=== PATIENT | female | born 1985 | race American Indian/Alaskan Native ===

== ENCOUNTER 2019-06-02 04:04 | Emergency (ER) | payer OTHER ==
[2019-06-02] MEDS ORDERED: ONDANSETRON 4 MG/2 ML INJ ONE (04:42)
[2019-06-02] MEDS ORDERED: ONDANSETRON 4 MG/2 ML INJ IV ONE ×2 (04:57→05:34)
[2019-06-02] MEDS ORDERED: SODIUM CHLORIDE 0.9% 1000 ML 1,000 ML with CAFFEINE/SODIUM BENZOATE 500 MG IV ONE (06:26)
[2019-06-02] MEDS ORDERED: SODIUM CHLORIDE 0.9% 500 ML 500 ML IV ONE (06:26)
[2019-06-02] MEDS ORDERED: diphenhydrAMINE 50 MG/ML VIAL IV ONE (06:26)
[2019-06-02] MEDS ORDERED: METOCLOPRAMIDE 10 MG/2 ML INJ IV ONE (06:26)
--- NOTE | 2019-06-02 06:28 | Emergency Department Report ---
ED General Adult HPI - General Chief complaint: Seizure Stated complaint: SEIZURES Time Seen by Provider: 06/02/19 06:04 Source: patient, EMS ( EMS documentation not available at time of chart dictation ), RN notes reviewed Mode of arrival: Stretcher Limitations: No Limitations - History of Present Illness Initial comments: The patient is a 33-year-old female. She is not known to myself previously. She has a history of seizures, takes oxcarbazepine, 450 mg twice daily, and has been compliant with her medications. She was had an outpatient eye doctor appointment this past Wednesday, for routine eye care, and was found to have incidental asymptomatic "elevated pressure in my eyes." She went to [facility] for evaluation, and reports having had an MRI, and CT scan, the results of which she does not know, and the spinal tap performed on Wednesday. She reports that she was discharged. She presents today with a complaint of headache, frontal and bitemporal, not sudden or thunderclap in nature, not maximal in intensity, worse with sitting up, better with sitting down, with some nausea and vomiting. No fever, no chills, she did take her seizure medication, but has been having issues with throwing up. In the emergency room, she is given fluids, Reglan, caffeine, Benadryl, all of which improved her symptoms. She states her headache is mostly resolved at this time. There is no neck pain or neck stiffness. No fevers or chills. No u rinary symptoms. No cough. No abdominal pain at the moment. She reports that she feels "a whole lot better." Her last seizure was 6 months ago -: Gradual, Sudden Location: head Quality: other Consistency: other Improves with: other Worsens with: other Associated Symptoms: other - Related Data Home Medications Medication Instructions Recorded Confirmed Last Taken OXcarbazepine [Trileptal] 450 mg PO BID 06/02/19 06/02/19 Unknown Previous Rx's Medication Instructions Recorded Last Taken Type Metoclopramide [Reglan] 10 mg PO QID PRN #30 tab 06/02/19 Unknown Rx Allergies Allergy/AdvReac Type Severity Reaction Status Date / Time No Known Allergies Allergy Verified 06/02/19 04:55 ED Review of Systems ROS: Stated complaint: SEIZURES Other details as noted in HPI Constitutional: malaise. denies: fever Eyes: denies: eye pain, eye discharge ENT: denies: congestion Cardiovascular: denies: syncope Gastrointestinal: nausea, vomiting. denies: abdominal pain Genitourinary: denies: dysuria Musculoskeletal: as per HPI Skin: as per HPI Neurological: headache Psychiatric: as per HPI Hematological/Lymphatic: as per HPI ED Past Medical Hx - Past Medical History Previous Medical History?: Yes Hx Seizures: Yes Additional medical history: increased occular pressure - Surgical History Past Surgical History?: No - Social History Smoking Status: Never Smoker Substance Use Type: None - Medications Home Medications: Home Medications Medication Instructions Recorded Confirmed Last Taken Type Metoclopramide [Reglan] 10 mg PO QID PRN #30 tab 06/02/19 Unknown Rx OXcarbazepine [Trileptal] 450 mg PO BID 06/02/19 06/02/19 Unknown History ED Physical Exam - General Limitations: Other (During the history and physical examination, I am slitter operator and escorted by regional vice president life sales Kavya Mancilla) General appearance: alert, in no apparent distress - Head Head exam: Present: atraumatic, normocephalic - Eye Eye exam: Present: normal appearance, PERRL, EOMI, other (Visual acuity intact to finger counting, color perception, reading at a close distance). Absent: nystagmus - ENT ENT exam: Present: normal exam, normal orophraynx, mucous membranes moist, normal external ear exam - Neck Neck exam: Present: normal inspection, full ROM. Absent: tenderness, meningismus - Respiratory Respiratory exam: Present: normal lung sounds bilaterally. Absent: respiratory distress - Cardiovascular Cardiovascular Exam: Present: regular rate, normal rhythm, normal heart sounds. Absent: bradycardia, tachycardia, irregular rhythm, systolic murmur, diastolic murmur, rubs, gallop - GI/Abdominal GI/Abdominal exam: Present: soft, normal bowel sounds. Absent: distended, tende rness, guarding, rebound, rigid, pulsatile mass - Extremities Exam Extremities exam: Present: normal inspection, full ROM, other (2+ pulses noted in the bilateral upper and lower extremities. There is no palpable cord. negative Homans sign. Muscular compartments are soft. The pelvis is stable.). Absent: pedal edema, calf tenderness - Back Exam Back exam: Present: normal inspection, full ROM. Absent: tenderness, CVA tenderness (R), CVA tenderness (L), paraspinal tenderness, vertebral tenderness - Neurological Exam Neurological exam: Present: alert, oriented X3, normal gait, other (There is no facial droop. The tongue is midline. Extraocular movements are intact bilat erally. There is 5 out of 5 strength in bilateral upper and lower extremities. Sensation is intact to light touch bilateral upper and lower extremities. There is no past-pointing. There is no pronator drift. There is normal [id number]. There is a normal gait.). Absent: motor sensory deficit - Psychiatric Psychiatric exam: Present: normal affect, normal mood - Skin Skin exam: Present: warm, dry, intact, normal color, other (Posterior back is examined, no redness, pus, streaking, discharge or erythema. Lumbar puncture site appears to be clean.). Absent: rash ED Course Vital Signs 06/02/19 06/02/19 06/02/19 04:15 04:30 05:04 Temperature 98.9 F Pulse Rate 71 71 Respiratory 13 15 13 Rate Blood Pressure 177/98 148/97 [Left] O2 Sat by Pulse 100 100 99 Oximetry ED Medical Decision Making - Lab Data Result diagrams: 06/02/19 06:48 06/02/19 06:48 Vital Signs 06/02/19 06/02/19 06/02/19 04:15 04:30 05:04 Temperature 98.9 F Pulse Rate 71 71 Respiratory 13 15 13 Rate Blood Pressure 177/98 148/97 [Left] O2 Sat by Pulse 100 100 99 Oximetry Lab Results 06/02/19 06/02/19 06/02/19 Range/Units 06:48 06:48 06:48 WBC 5.6 (4.5-11.0) K/mm3 RBC 4.60 (3.65-5.03) M/mm3 Hgb 13.8 (10.1-14.3) gm/dl Hct 41.5 (30.3-42.9) % MCV 90 (79-97) fl MCH 30 (28-32) pg MCHC 33 (30-34) % RDW 14.1 (13.2-15.2) % Plt Count 213 (140-440) K/mm3 PT 15.0 H (12.2-14.9) Sec. INR 1.16 H (0.87-1.13) APTT 30.1 (24.2-36.6) Sec. Sodium 139 (137-145) mmol/L Potassium 3.8 (3.6-5.0) mmol/L Chloride 105.3 (98-107) mmol/L Carbon Dioxide 20 L (22-30) mmol/L Anion Gap 18 mmol/L BUN 8 (7-17) mg/dL Creatinine 0.5 L (0.7-1.2) mg/dL Estimated GFR > 60 ml/min BUN/Creatinine Ratio 16 % Glucose 92 (65-100) mg/dL Calcium 8.8 (8.4-10.2) mg/dL Magnesium 2.00 (1.7-2.3) mg/dL Total Bilirubin 0.50 (0.1-1.2) mg/dL AST 9 (5-40) units/L ALT 6 L (7-56) units/L Alkaline Phosphatase 44 (35-129) units/L Total Creatine Kinase 68 (30-135) units/L Total Protein 6.7 (6.3-8.2) g/dL Albumin 4.0 (3.9-5) g/dL Albumin/Globulin Ratio 1.5 % HCG, Quant (0-4) mIU/mL 06/02/19 Range/Units 06:48 WBC (4.5-11.0) K/mm3 RBC (3.65-5.03) M/mm3 Hgb (10.1-14.3) gm/dl Hct (30.3-42.9) % MCV (79-97) fl MCH (28-32) pg MCHC (30-34) % RDW (13.2-15.2) % Plt Count (140-440) K/mm3 PT (12.2-14.9) Sec. INR (0.87-1.13) APTT (24.2-36.6) Sec. Sodium (137-145) mmol/L Potassium (3.6-5.0) mmol/L Chloride (98-107) mmol/L Carbon Dioxide (22-30) mmol/L Anion Gap mmol/L BUN (7-17) mg/dL Creatinine (0.7-1.2) mg/dL Estimated GFR ml/min BUN/Creatinine Ratio % Glucose (65-100) mg/dL Calcium (8.4-10.2) mg/dL Magnesium (1.7-2.3) mg/dL Total Bilirubin (0.1-1.2) mg/dL AST (5-40) units/L ALT (7-56) units/L Alkaline Phosphatase (35-129) units/L Total Creatine Kinase (30-135) units/L Total Protein (6.3-8.2) g/dL Albumin (3.9-5) g/dL Albumin/Globulin Ratio % HCG, Quant < 2 (0-4) mIU/mL - EKG Data -: EKG Interpreted by Nv - EKG Data 06/02/19 08:12 Sinus rhythm, 67 bpm, normal axis, QTC 435 ms, borderline high left ventricular voltage, not consistent with STEMI, the EKG is abnormal without prior for comparison - Radiology Data Radiology results: report reviewed, image reviewed Noncontrast CT scan of the brain is negative for acute findings.Print Report Referring Physician: ALONDRA MARROQUIN Patient Name: ANDREIA LACEY Date of : 1985 Sex: Female Report Date: 2019-06-02 Report Status: Finalized Findings [facility] [address] [place] [address] Cat Scan Report Signed Patient: ANDREIA LACYE MR#: [id number] : 1985 Acct:[id number] Age/Sex: 33 / F ADM Date: 06/02/19 Loc: ED Attending Dr: Ordering Physician: ALONDRA MARROQUIN MD Date of Service: 06/02/19 Procedure(s): CT head/brain wo con Accession Number(s): [id number] cc: ALONDRA MARROQUIN MD CT head/brain wo con INDICATION / CLINICAL INFORMATION: MAIN: post dural Headache, Nausea/ Vomiting, seizures. TECHNIQUE: Axial CT imaging of the brain was obtained without contrast. Coronal and sagittal reformatted imaging obtained and reviewed. All CT scans at this location are performed using CT dose reduction for ALARA by means of automated exposure control. COMPARISON: None available. FINDINGS: No intracranial hemorrhage, mass, or midline shift. No extra-axial fluid collection or suggestion of acute territorial infarct. Ventricular system and basilar cisterns are unremarkable. Paranasal sinuses are well aerated. There is some mild mucosal thickening throughout the anterior and ethmoid air cells bilaterally. No calvarial abnormality. IMPRESSION: 1. Mild mucosal thickening throughout the ethmoid air cells bilaterally. 2. Otherwise negative exam. Signer Name: Marlene Toth MD Signed: 06/02/2019 7:06 AM Workstation Name: [id number] Transcribed By: JR Dictated By: Marlene Toth MD Electronically Authenticated By: Marlene Toth MD Signed Date/Time: 06/02/19705 DD/ 0 TD/TT: - Medical Decision Making Differential diagnosis, including but not limited to: Post dural headache, migraine headache, tension headache, cluster headache, seizure secondary to nausea and vomiting of antiepileptic medications Assessment and plan: 33-year-old female who recently had extensive, thorough work-up performed at another hospital, presenting with resolved probable post dural headache, and resolved seizures. She is afebrile, clinically sober, walking with a steady gait, with a GCS of 15, NIH score of 0. There are no meningeal signs or nuchal rigidity, the patient is smiling, calm and cooperative, and indicates that she feels "a whole lot better." We suspect that the patient had a post dural headache, leading to nausea and vomiting, which caused the patient to vomit her antiepileptic drugs, thus leading to breakthrough seizure. She is treated supportively and symptomatically, she has been observed in this department for hours without recurrent convulsive event. She will be discharged with as needed nausea medication, she is encouraged to not drive or operate motor vehicles for the next 6 months. She states that she has follow-up with her outpatient neurologist, primary care doctor, and ocular specialist. We also discussed the case with consulting neurology, Dr. Hernandez, we discussed the patient's history, physical, exam, laboratory studies, CAT scan studies. No additional work-up or treatment in the emergency room is recommended at this time, and we both agree that the patient is suitable to follow-up with outpatient physician. Return precautions are reviewed. Of note, the patient is not , and states that she has not delivered or given within the past 6 weeks Critical care attestation.: If time is entered above; I have spent that time in minutes in the direct care of this critically ill patient, excluding procedure time. ED Disposition Clinical Impression: History of seizure, Post-dural puncture headache Disposition: DC-01 TO HOME OR SELFCARE Is pt being admited?: No Does the pt Need Aspirin: No Condition: Stable Additional Instructions: Please continue current outpatient medications. Do not drive or operate motor vehicles for the next 6 months, or until cleared to do so by her primary care doctor, neurologist. Recommend follow-up with your neurologist within the next 7 to 10 days. For the patient's convenience, local neurology specialists have been listed. Please drink plenty of fluids, and patient may experience benefit from caffeinated beverages. Rest, avoid heavy lifting and avoid strenuous physical activity, patient may take Excedrin Migraine [id number] as directed on the package for headache, and Reglan medication may also help out with headache and nausea/vomiting. Please return to the emergency room right away with new, worsened or different symptoms, or symptoms not present on the initial emergency room evaluation. Referrals: JENNIFER ASHFORD MD [Referring] - 3-5 Days OLEG PAIZ MD [Staff Physician] - 3-5 Days ANASTASIA RYAN MD [Staff Physician] - 3-5 Days
[2019-06-02 07:07] LABS: Hematocrit 41.5 % (30.3-42.9); Hemoglobin 13.8 gm/dl (10.1-14.3); Mean Corpuscular HGB Conc 33 % (30-34); Mean Corpuscular Volume 90 fl (79-97); Platelet Count 213 K/mm3 (140-440); Red Cell Distribution Width 14.1 % (13.2-15.2)
[2019-06-02] MEDS ORDERED: SODIUM CHLORIDE 0.9% 1000 ML 1,000 ML ONE (07:08)
--- NOTE | 2019-06-02 07:10 | Cat Scan Report ---
CT head/brain wo con INDICATION / CLINICAL INFORMATION: MAIN: post dural Headache, Nausea/ Vomiting, seizures. TECHNIQUE: Axial CT imaging of the brain was obtained without contrast. Coronal and sagittal reformatted imaging obtained and reviewed. All CT scans at this location are performed using CT dose reduction for ALAR A by means of automated exposure control. COMPARISON: None available. FINDINGS: No intracranial hemorrhage, mass, or midline shift. No extra-axial fluid collection or suggestion of acute territorial infarct. Ventricular system and basilar cisterns are unremarkable. Paranasal sinuses are well aerated. There is some mild mucosal thickening throughout the anterior and ethmoid air cells bilaterally. No calvarial abnormality. IMPRESSION: 1. Mild mucosal thickening throughout the ethmoid air cells bilaterally. 2. Otherwise negative exam. Signer Name: Marlene Toth MD Signed: 06/02/2019 7:06 AM Workstation Name: [id number]
[2019-06-02 07:31] LABS: Alanine Aminotransferase 6 units/L (7-56); BUN/Creatinine Ratio 16; Blood Urea Nitrogen 8 mg/dL (7-17); Calcium 8.8 mg/dL (8.4-10.2); Hemolysis Index 26
[2019-06-02 07:40] LABS: INR 1.16 (0.87-1.13)
[2019-06-02 07:41] LABS: Partial Thromboplastin Time 30.1 Sec. (24.2-36.6)
[2019-06-02 09:14] VITALS: BP 158/93
== END 2019-06-02 08:41 | disposition home or self-care (01) ==
LOC: EDBD → ED 04:04
DX: R56.9 Unspecified convulsions (principal); G97.1 Other reaction to spinal and lumbar puncture
CPT/HCPCS: 36415; 70450; 80053; 82550; 83735; 84702; 85027; 85610; 85730; 93005; 93010; 96365; 96375; 96376; 99285; J1200; J2405; J2765; J7030